=== PATIENT | male | born 1945 | race Caucasian/White ===

== ENCOUNTER 2017-01-25 10:21 | Emergency (ER) | payer MEDICARE, OTHER ==
[~2017-01-25] VITALS: Ht 182.9 cm; Wt 64.0 kg
[~2017-01-25 10:21] MED LIST: ATOR10 PO; LISI-363 PO; METO50TA PO; PLAV75TA PO; PROS5TAB2 PO; TAMS0.4C67 PO
[2017-01-25 10:27] VITALS: BP 151/88; PULSE 71; RESP 18; TEMP 98.1; O2SAT 98
[2017-01-25] MEDS ORDERED: LISI40TA PO (11:06)
[2017-01-25] MEDS ORDERED: METO25TA3 PO (11:06)
[2017-01-25] MEDS ORDERED: FINA5TAB2 PO (11:06)
[2017-01-25] MEDS ORDERED: ATOR10TA15 PO (11:06)
[2017-01-25] MEDS ORDERED: TAMS5CAP PO (11:06)
--- NOTE | 2017-01-25 11:11 | PD ---
HPI . Right wrist edema since Monday Chief Complaint: Edema Time Seen by Provider: 11:11 Travel History International Travel<30 days: No Contact w/Intl Traveler<30days: No Traveled to known affect area: No History of Present Illness HPI 71-year-old male with history of hypertension, CAD with stent placement, hyperlipidemia, COPD and BPH here with complaints of right wrist pain and some swelling. Patient says he was working in his yard using a pitch fork and thinks he may have hurt his wrist. He has full range of motion of the joints, but has some tenderness and mild swelling at the distal aspect. He denies any fall or trauma to the area. He is accompanied by his . PFSH Past Medical History Hx Anticoagulant Therapy: Yes Cardiovascular Problems: Yes ([place] TIMES 3 , HTN) High Cholesterol: Yes Cerebrovascular Accident: Yes (TIA) Diabetes: No Diminished Hearing: No Genitourinary: Yes (ENLARGED PROSTATE DIFFICULTY URINATING) Hypertension: Yes Musculoskeletal: No Neurologic: No Reproductive: No Respiratory: No Influenza Vaccination: No Past Surgical History Abdominal Surgery: No Cardiac Surgery: Yes (STENTING X3) Coronary Stent: Yes (3) Ear Surgery: No Endocrine Surgery: No Eye Surgery: No Genitourinary Surgery: No Gynecologic Surgery: No Oral Surgery: No Thoracic Surgery: No Other Surgery: Yes Social History Alcohol Use: Yes (4-5 BEERS DAILY) Tobacco Use: Yes (1 PPD) Substance Use: No Allergies-Medications (Allergen,Severity, Reaction): Coded Allergies: No Known Allergies (Unverified , 01/25/17) Reported Meds & Prescriptions Reported Meds & Active Scripts Active Ibuprofen 800 Mg Tab 800 Mg PO TID Reported Finasteride 5 Mg Tab 5 Mg PO DAILY Do not crush. Flomax (Tamsulosin HCl) 0.4 Mg Cap 0.4 Mg PO HS Metoprolol Tartrate 25 Mg Tab 12.5 Mg PO DAILY Lisinopril 40 Mg Tab 40 Mg PO DAILY Atorvastatin (Atorvastatin Calcium) 10 Mg Tab 10 Mg PO HS Review of Systems General / Constitutional: No: Fever Eyes: No: Visual changes HENT: No: Headaches Cardiovascular: No: Chest Pain or Discomfort Respiratory: No: Shortness of Breath Gastrointestinal: No: Abdominal Pain Genitourinary: No: Dysuria Musculoskeletal: Positive: Pain (right wrist pain) Skin: No Rash Neurologic: No: Weakness Psychiatric: No: Depression Endocrine: No: Polydipsia Hematologic/Lymphatic: No: Easy Bruising Physical Exam Narrative GENERAL: AAO x 3, no acute distress, Well-nourished, well-developed patient. SKIN: Warm and dry. No visible rashes or bruising. minimal edema to right distal wrist HEAD: Normocephalic and atraumatic. EYES: No scleral icterus. No injection or drainage. ENT: No nasal drainage noted. Mucous membranes pink. Airway patent. NECK: Supple, trachea midline. No JVD. CARDIOVASCULAR: Regular rate and rhythm without murmurs, gallops, or rubs. RESPIRATORY: Breath sounds equal bilaterally. No accessory muscle use. No rhonchi or rales. GASTROINTESTINAL: Abdomen soft, non-tender, nondistended. EXTREMITIES: No cyanosis or edema. mild edema to right distal wrist, motion is normal, no point tenderness, positive Ammy on the right wrist BACK: Nontender without obvious deformity. No CVA tenderness. PSYCH: AAO x 3, normal affect. Data Data Last Documented VS Vital Signs Date Time Temp Pulse Resp B/P Pulse Ox O2 Delivery O2 Flow Rate FiO2 01/25/17 10:27 98.1 71 18 151/88 98 Orders ^ Roberto Bandage (01/25/17 11:16) MDM Medical Decision Making Medical Screen Exam Complete: Yes Emergency Medical Condition: Yes Medical Record Reviewed: Yes Differential Diagnosis Tendinitis, de Quervain's tenosynovitis, less likely wrist fracture, less likely wrist sprain Narrative Course 71-year-old male with history of hypertension, CAD with stent placement, hyperlipidemia, COPD and BPH here with complaints of right wrist pain and some swelling. Patient says he was working in his yard using a pitch fork and thinks he may have hurt his wrist. He has full range of motion of the joints, but has some tenderness and mild swelling at the distal aspect. He denies any fall or trauma to the area. He is accompanied by his . Patient seen and examined. He does not have any significant findings other than some mild edema and a positive Ammy to the right wrist. I do not recommend any imaging. Discussed with him that this is likely due to overuse when working in his yard. Advise rest and NSAIDs. Roberto wrap provided for support. Patient verbalized understanding of instructions, questions were answered, and thanked me for their care. I advised them if their condition worsens, please return to the nearest emergency room for further care. Diagnosis Primary Impression: Tenosynovitis, wrist Patient Instructions: General Instructions Additional Instructions: Rest the affected area as much as possible. Ice this area for 15-20 minutes at a time. You can do this every hour or as much as tolerated. Keep this area compressed (roberto bandage) as tolerated. Elevate this area. Use ibuprofen as needed for pain and inflammation. Please return to emergency department if your symptoms return or worsen. Follow up with your primary care provider. Take medications as prescribed. Med/Other Pt SpecificInfo: Prescription(s) given Scripts Ibuprofen 800 Mg [id number] Mg PO TID #15 TAB Prov:Juan Camacho MD 01/25/17 Disposition: 01 DISCHARGE HOME Condition: Stable Kymberly العراقي Jan 25, 2017 11:11 Kymberly العراقي Jan 25, 2017 11:11
[2017-01-25] MEDS ORDERED: IBUP800T23 PO (11:17)
== END 2017-01-25 11:29 | disposition home or self-care (01) ==
LOC: PHED 10:21
DX: M65.9 Synovitis and tenosynovitis, unspecified (principal); F17.210 Nicotine dependence, cigarettes, uncomplicated; I10 Essential (primary) hypertension; E78.5 Hyperlipidemia, unspecified; I25.10 Atherosclerotic heart disease of native coronary artery without angina pectoris; J44.9 Chronic obstructive pulmonary disease, unspecified; E78.00 Pure hypercholesterolemia, unspecified; I25.2 Old myocardial infarction; Z86.73 Personal history of transient ischemic attack (TIA), and cerebral infarction without residual deficits; Z79.01 Long term (current) use of anticoagulants
CPT/HCPCS: 99283

== ENCOUNTER 2018-03-17 20:41 | Inpatient (IN) | payer OTHER, MEDICARE ==
[~2018-03-17] VITALS: Ht 182.9 cm; Wt 87.5 kg
[2018-03-17] MEDS: SODIUM CHLOR 0.9% 1000 ML INJ 1,000 ML IV SCH (00:57)
[~2018-03-17 20:41] MED LIST changes: -ATOR10 PO; +ATOR10TA15 PO; +FINA5TAB2 PO; +IBUP1TAB7 PO; -LISI-363 PO; +LISI40TA PO; +METO25TA3 PO; -METO50TA PO; -PLAV75TA PO; -PROS5TAB2 PO; -TAMS0.4C67 PO; +TAMS5CAP PO
[2018-03-17 20:42] VITALS: BP 229/106; PULSE 73; RESP 18; O2SAT 97
[2018-03-17] MEDS ORDERED: SODIUM CHLORIDE 0.9% FLUSH 10 ML FLUSH IVF PRN (20:45)
[2018-03-17 20:47] VITALS: BP 205/102; PULSE 68; RESP 18; O2SAT 98
[2018-03-17] MEDS ORDERED: CLOP75TA PO (20:56)
--- NOTE | 2018-03-17 21:07 | RADRPT ---
EXAM DATE/TIME: 03/17/2018 20:54 [facility] COMPARISON: No previous studies available for comparison. INDICATIONS : Left sided weakness. RADIATION DOSE: 56.35 CTDIvol (mGy) MEDICAL HISTORY : Cerebrovascular disease. Myocardial infarction. Cardiovascular diseaseHypertension. SURGICAL HISTORY : Non-responsive. Cardiac stent. ENCOUNTER: Initial ACUITY: 1 day PAIN SCALE: 2/10 LOCATION: cranial TECHNIQUE: Multiple contiguous axial images were obtained of the head. Using automated exposure control and adj ustment of the mA and/or kV according to patient size, radiation dose was kept as low as reasonably a chievable to obtain optimal diagnostic quality images. DICOM format image data is available electro nically for review and comparison. FINDINGS: CEREBRUM: The ventricles are normal for age. Bilateral cortical atrophy and chronic white matter changes. There is some decreased density in both basal ganglias, right greater than left suggestive of old infarcts . No evidence of midline shift, mass lesion, hemorrhage or acute infarction. No extra-axial fluid co llections are seen. POSTERIOR FOSSA: The cerebellum and brainstem are intact. The 4th ventricle is midline. The cerebellopontine angle i s unremarkable. EXTRACRANIAL: The visualized portion of the orbits is intact. SKULL: The calvaria is intact. No evidence of skull fracture. CONCLUSION: 1. No acute intracranial hemorrhage. 2. Low density areas in both basal ganglia areas suggestive of bilateral old infarcts. Rc Singer MD on March 17, 2018 at 21:02 Board Certified Radiologist. This report was verified electronically.
--- NOTE | 2018-03-17 21:11 | PD ---
HPI Chief Complaint: Left-sided weakness Time Seen by Provider: 20:43 Travel History International Travel<30 days: No Contact w/Intl Traveler<30days: No History of Present Illness HPI 72-year-old male patient with previous history of stroke on the right side, presents to the ER today because he is having left arm and leg weakness that started today at around 1:30 PM. He states that he was putting it off but his told him to come in. He denies any headache, trouble speaking, or other symptoms. He states that he feels the same as when he had his stroke on the right side. Modifying Factors: None Associated Signs & Symptoms: Left-sided weakness Risk Factors: previous stroke PFSH Past Medical History Hx Anticoagulant Therapy: Yes Cardiovascular Problems: Yes ([place] TIMES 3 , HTN) High Cholesterol: Yes Cerebrovascular Accident: Yes (TIA) Diabetes: No Diminished Hearing: No Genitourinary: Yes (ENLARGED PROSTATE DIFFICULTY URINATING) Hypertension: Yes Musculoskeletal: No Neurologic: No Reproductive: No Respiratory: No Past Surgical History Abdominal Surgery: No Cardiac Surgery: Yes (STENTING X3) Coronary Stent: Yes (3) Ear Surgery: No Endocrine Surgery: No Eye Surgery: No Genitourinary Surgery: No Gynecologic Surgery: No Oral Surgery: No Thoracic Surgery: No Other Surgery: Yes Social History Alcohol Use: Yes (4-5 BEERS DAILY) Tobacco Use: Yes (1 PPD) Substance Use: No Allergies-Medications (Allergen,Severity, Reaction): Coded Allergies: No Known Allergies (Unverified , 01/25/17) Reported Meds & Prescriptions Reported Meds & Active Scripts Active Reported Clopidogrel (Clopidogrel Bisulfate) 75 Mg Tab 75 Mg PO DAILY Finasteride 5 Mg Tab 5 Mg PO DAILY Do not crush. Flomax (Tamsulosin HCl) 0.4 Mg Cap 0.4 Mg PO HS Metoprolol Tartrate 25 Mg Tab 12.5 Mg PO DAILY Lisinopril 40 Mg Tab 40 Mg PO DAILY Atorvastatin (Atorvastatin Calcium) 10 Mg Tab 10 Mg PO HS Review of Systems Except as stated in HPI: all other systems reviewed are Neg Physical Exam Narrative GENERAL: Well-developed elderly white male patient currently in mild distress. Awake and oriented 3. SKIN: Focused skin assessment warm/dry. HEAD: Atraumatic. Normocephalic. EYES: Pupils equal and round. No scleral icterus. No injection or drainage. ENT: No nasal bleeding or discharge. Mucous membranes pink and moist. NECK: Trachea midline. No JVD. Supple. CARDIOVASCULAR: Regular rate and rhythm. No murmur appreciated. RESPIRATORY: No accessory muscle use. Clear to auscultation. Breath sounds equal bilaterally. GASTROINTESTINAL: Abdomen soft, non-tender, nondistended. Hepatic and splenic margins not palpable. MUSCULOSKELETAL: No obvious deformities. No clubbing. No cyanosis. No edema. NEUROLOGICAL: Awake and alert. Facial asymmetry, left facial droop, mild left leg weakness. Normal speech. I do not see an obvious pronator drift. PSYCHIATRIC: Appropriate mood and affect; insight and judgment normal. Data Data Last Documented VS Vital Signs Date Time Temp Pulse Resp B/P (MAP) Pulse Ox O2 Delivery O2 Flow Rate FiO2 03/17/18 20:47 68 18 205/102 (136) 98 Room Air Orders Orders Electrocardiogram (03/17/18 20:43) Prothrombin Time / Inr (Pt) (03/17/18 20:43) Act Partial Throm Time (Ptt) (03/17/18 20:43) Complete Blood Count With Diff (03/17/18 20:43) Comprehensive Metabolic Panel (03/17/18 20:43) Ct Brain W/O Iv Contrast(Rout) (03/17/18 20:43) Ecg Monitoring (03/17/18 20:43) Iv Access Insert/Monitor (03/17/18 20:43) Oximetry (03/17/18 20:43) Sodium Chloride 0.9% Flush (Ns Flush) (03/17/18 20:45) Aspirin (Aspirin) (03/17/18 21:45) Clonidine (Catapres) (03/17/18 21:45) Admit Order (Ed Use Only) (03/17/18 22:07) Labs Laboratory Tests Test 03/17/18 20:50 White Blood Count 6.5 TH/MM3 Red Blood Count 4.96 MIL/MM3 Hemoglobin 14.9 GM/DL Hematocrit 43.6 % Mean Corpuscular Volume 87.8 FL Mean Corpuscular Hemoglobin 30.1 PG Mean Corpuscular Hemoglobin Concent 34.3 % Red Cell Distribution Width 13.7 % Platelet Count 286 TH/MM3 Mean Platelet Volume 8.0 FL Neutrophils (%) (Auto) 52.8 % Lymphocytes (%) (Auto) 30.9 % Monocytes (%) (Auto) 9.8 % Eosinophils (%) (Auto) 5.3 % Basophils (%) (Auto) 1.2 % Neutrophils # (Auto) 3.4 TH/MM3 Lymphocytes # (Auto) 2.0 TH/MM3 Monocytes # (Auto) 0.6 TH/MM3 Eosinophils # (Auto) 0.3 TH/MM3 Basophils # (Auto) 0.1 TH/MM3 CBC Comment DIFF FINAL Differential Comment Prothrombin Time 9.6 SEC Prothromb Time International Ratio 0.9 RATIO Activated Partial Thromboplast Time 28.2 SEC Blood Urea Nitrogen 7 MG/DL Creatinine 0.93 MG/DL Random Glucose 71 MG/DL Total Protein 7.7 GM/DL Albumin 4.0 GM/DL Calcium Level 8.7 MG/DL Alkaline Phosphatase 68 U/L Aspartate Amino Transf (AST/SGOT) 23 U/L Alanine Aminotransferase (ALT/SGPT) 20 U/L Total Bilirubin 0.4 MG/DL Sodium Level 132 MEQ/L Potassium Level 4.1 MEQ/L Chloride Level 96 MEQ/L Carbon Dioxide Level 28.2 MEQ/L Anion Gap 8 MEQ/L Estimat Glomerular Filtration Rate 80 ML/MIN [facility] Medical Decision Making Medical Screen Exam Complete: Yes Emergency Medical Condition: Yes Medical Record Reviewed: Yes Interpretation(s) EKG shows NSR, no ST elevation or depression, and no arrhythmias. No significant T-wave inversions. Laboratory Tests Test 03/17/18 20:50 Monocytes (%) (Auto) 9.8 % (0.0-8.0) Eosinophils (%) (Auto) 5.3 % (0.0-4.0) Prothrombin Time 9.6 SEC (9.8-11.6) Random Glucose 71 MG/DL (74-106) Sodium Level 132 MEQ/L (136-145) Chloride Level 96 MEQ/L (98-107) Estimat Glomerular Filtration Rate 80 ML/MIN (>89) Last [address] 03/17/182042 Signed Impressions: Service Date/Time: Monday, March 17, 2018 20:54 - CONCLUSION: 1. No acute intracranial hemorrhage. 2. Low density areas in both basal ganglia areas suggestive of bilateral old infarcts. Rc Singer MD Differential Diagnosis Left-sided weakness, facial droop: CVA versus other acute intracranial processes Narrative Course Patient started having symptoms at 1:30 PM and at this point would not be a TPA candidate. CAT scan did not show any signs of acute intracranial processes. His blood pressure was quite high. He was given aspirin and clonidine in the ER. The rest of the lab work was unremarkable. EKG did not show any signs of acute changes. At this point, my plan would be to admit him for CVA. Case was discussed with Dr. Bryant for admission. Diagnosis Primary Impression: CVA (cerebral vascular accident) Additional Impression: Hypertension Admitting Information Admitting Physician Requests: it Cory Elder MD March 17, 2018 20:46
[2018-03-17 21:29] LABS: AUTOMATED NEUTROPHIL # 3.4 TH/MM3 (1.8-7.7); BASOPHIL # 0.1 TH/MM3 (0-0.2); BASOPHIL % 1.2 % (0.0-2.0); EOSINOPHIL # 0.3 TH/MM3 (0-0.4); EOSINOPHIL % 5.3 % (0.0-4.0); HEMATOCRIT 43.6 % (39.0-51.0); HEMOGLOBIN 14.9 GM/DL (13.0-17.0); LYMPH % 30.9 % (9.0-44.0); MEAN CELL VOLUME 87.8 FL (80.0-100.0); MEAN CORPUSCULAR HEMOGLOBIN 30.1 PG (27.0-34.0); MEAN CORPUSCULAR HGB CONC 34.3 % (32.0-36.0); MONO % 9.8 % (0.0-8.0); MONOCYTE # 0.6 TH/MM3 (0-0.9); NEUT % 52.8 % (16.0-70.0); PLATELET COUNT 286 TH/MM3 (150-450); RED BLOOD COUNT 4.96 MIL/MM3 (4.50-5.90); RED CELL DISTRIBUTION WIDTH 13.7 % (11.6-17.2); WHITE BLOOD COUNT 6.5 TH/MM3 (4.0-11.0)
[2018-03-17 21:33] LABS: INTERNATIONAL NORMALIZED RATIO 0.9 RATIO; PROTHROMBIN TIME - PATIENT 9.6 SEC (9.8-11.6)
[2018-03-17] MEDS ORDERED: cloNIDine HCL 0.2 MG TAB PO ONE (21:45)
[2018-03-17] MEDS ORDERED: ASPIRIN 325 MG TAB PO ONE (21:45)
[2018-03-17 21:57] LABS: AST (GOT) 23 U/L (15-37); BICARBONATE 28.2 MEQ/L (21.0-32.0); BLOOD UREA NITROGEN 7 MG/DL (7-18); CALCIUM 8.7 MG/DL (8.5-10.1); CHLORIDE 96 MEQ/L (98-107); CREATININE 0.93 MG/DL (0.60-1.30); GLOMERULAR FILTRATION RATE 80 ML/MIN (>89); GLUCOSE,RANDOM 71 MG/DL (74-106); SODIUM (NA) 132 MEQ/L (136-145)
[2018-03-17 22:01] LABS: ALKALINE PHOSPHATASE 68 U/L (45-117); ALT (GPT) 20 U/L (12-78); TOTAL BILIRUBIN ADULT 0.4 MG/DL (0.2-1.0); TOTAL PROTEIN 7.7 GM/DL (6.4-8.2)
[2018-03-17 22:08] VITALS: BP 179/96; PULSE 72; RESP 18; O2SAT 97
--- NOTE | 2018-03-17 22:13 | HHI.HP ---
[facility] Service [place] [facility] Primary Care Physician Unknown Admission Diagnosis CVA/hypertension Diagnoses: (1) CVA (cerebral vascular accident) Diagnosis: Principal (2) HTN (hypertension) Diagnosis: Principal (3) Tobacco abuse Diagnosis: Principal (4) Alcohol use Diagnosis: Principal Travel History International Travel<30 Days: No Contact w/Intl Traveler <30 Da: No Traveled to Known Affected Are: No History of Present Illness This is a 72-year-old male with a PMH of HTN, Hyperlipidemia, h/o CVA, Tobacco Abuse and Alcohol Use who was brought to the ER for stroke-like symptoms starting at approx 13:30. Pt states he was sitting in his recliner this afternoon watching TV, when he got up he felt his left leg go numb, thought it would go away. Shortly afterwards states he was walking to his shed to put away his tools when he had gait instability, fell to left side. No head trauma or LOC. Denies LUE weakness/numbness, no facial droop/slurred speech. On arrival, BP 229/106, HR 73, O2 sat 97% RA. CBC unremarkable. Chemistry essentially unremarkable. INR 0.9. 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 Review of Systems Except as stated in HPI: all other systems reviewed are Neg ROS: 14 point review of systems otherwise negative. Past Family Social History Past Medical History PMH: HTN, Hyperlipidemia, h/o CVA, Tobacco Abuse and Alcohol Use Past Surgical History PAST SURGICAL HISTORY: Cardiac Stent Allergies: Coded Allergies: No Known Allergies (Unverified Allergy, Unknown, 03/17/18) Family History PAST FAMILY HISTORY: Reviewed. No h/o DM or CAD Social History PAST SOCIAL HISTORY: Drinks 4-5 beers daily. Smokes 1ppd. Negative for drugs. Physical Exam Vital Signs Vital Signs Date Time Temp Pulse Resp B/P (MAP) Pulse Ox O2 Delivery O2 Flow Rate FiO2 03/17/18 22:08 72 18 179/96 (123) 97 Room Air 03/17/18 20:47 68 18 205/102 (136) 98 Room Air 03/17/18 20:42 73 18 229/106 (612) 62 Physical Exam PE: GENERAL: Pleasant elderly white male in no acute distress. HEENT: PERRLA, EOMI. No scleral icterus or conjunctival pallor. No lid lag, old facial droop. CARDIOVASCULAR: Regular rate and rhythm. No obvious murmurs to auscultation. No chest tenderness to palpation. RESPIRATORY: No obvious rhonchi or wheezing. Clear to auscultation. Breath sounds equal bilaterally. GASTROINTESTINAL: Abdomen soft, non-tender, nondistended. BS normal. MUSCULOSKELETAL: Extremities without clubbing, cyanosis, or edema. No obvious deformities. NEUROLOGICAL: Awake, alert and oriented x4. No focal neurologic deficits. Moving both upper and lower extremities spontaneously. Laboratory Laboratory Tests Test 03/17/18 20:50 White Blood Count 6.5 Red Blood Count 4.96 Hemoglobin 14.9 Hematocrit 43.6 Mean Corpuscular Volume 87.8 Mean Corpuscular Hemoglobin 30.1 Mean Corpuscular Hemoglobin Concent 34.3 Red Cell Distribution Width 13.7 Platelet Count 286 Mean Platelet Volume 8.0 Neutrophils (%) (Auto) 52.8 Lymphocytes (%) (Auto) 30.9 Monocytes (%) (Auto) 9.8 Eosinophils (%) (Auto) 5.3 Basophils (%) (Auto) 1.2 Neutrophils # (Auto) 3.4 Lymphocytes # (Auto) 2.0 Monocytes # (Auto) 0.6 Eosinophils # (Auto) 0.3 Basophils # (Auto) 0.1 CBC Comment DIFF FINAL Differential Comment Prothrombin Time 9.6 Prothromb Time International Ratio 0.9 Activated Partial Thromboplast Time 28.2 Blood Urea Nitrogen 7 Creatinine 0.93 Random Glucose 71 Total Protein 7.7 Albumin 4.0 Calcium Level 8.7 Alkaline Phosphatase 68 Aspartate Amino Transf (AST/SGOT) 23 Alanine Aminotransferase (ALT/SGPT) 20 Total Bilirubin 0.4 Sodium Level 132 Potassium Level 4.1 Chloride Level 96 Carbon Dioxide Level 28.2 Anion Gap 8 Estimat Glomerular Filtration Rate 80 Result Diagram: 03/17/18204903/17/182049 Caprini VTE Risk Assessment Caprini VTE Risk Assessment: No/Low Risk (score <= 1) Caprini Risk Assessment Model Point Value = 1 Point Value = 2 Point Value = 3 Point Value = 5 Age 41-60 Minor surgery BMI > 25 kg/m2 Swollen legs Varicose veins or History of unexplained or recurrent spontaneous Oral contraceptives or hormone replacement Sepsis (< 1 month) Serious lung disease, including pneumonia (< 1 month) Abnormal pulmonary function Acute myocardial infarction Congestive heart failure (< 1 month) History of inflammatory bowel disease Medical patient at bed rest Age 61-74 Arthroscopic surgery Major open surgery (> 45 min) Laparoscopic surgery (> 45 min) Malignancy Confined to bed (> 72 hours) Immobilizing plaster cast Central venous access Age >= 75 History of VTE Family history of VTE Factor V Leiden Prothrombin [id number] Lupus anticoagulant Anticardiolipin antibodies Elevated serum homocysteine Heparin-induced thrombocytopenia Other congenital or acquired thrombophilia Stroke (< 1 month) Elective arthroplasty Hip, pelvis, or leg fracture Acute spinal cord injury (< 1 month) Prophylaxis Regimen Total Risk Factor Score Risk Level Prophylaxis Regimen 0-1 Low Early ambulation 2 Moderate Order ONE of the following: *Sequential Compression Device (SCD) *Heparin 5000 units SQ BID 3-4 Higher Order ONE of the following medications: *Heparin 5000 units SQ TID *Enoxaparin/Lovenox 40 mg SQ daily (WT < 150 kg, CrCl > 30 mL/min) *Enoxaparin/Lovenox 30 mg SQ daily (WT < 150 kg, CrCl > 10-29 mL/min) *Enoxaparin/Lovenox 30 mg SQ BID (WT < 150 kg, CrCl > 30 mL/min) AND/OR *Sequential Compression Device (SCD) 5 or more Highest Order ONE of the following medications: *Heparin 5000 units SQ TID (Preferred with Epidurals) *Enoxaparin/Lovenox 40 mg SQ daily (WT < 150 kg, CrCl > 30 mL/min) *Enoxaparin/Lovenox 30 mg SQ daily (WT < 150 kg, CrCl > 10-29 mL/min) *Enoxaparin/Lovenox 30 mg SQ BID (WT < 150 kg, CrCl > 30 mL/min) AND *Sequential Compression Device (SCD) Assessment and Plan Problem List: (1) CVA (cerebral vascular accident) ICD Code: I63.9 - Cerebral infarction, unspecified Status: Acute (2) HTN (hypertension) ICD Code: I10 - Essential (primary) hypertension (3) Tobacco abuse ICD Code: Z72.0 - Tobacco use (4) Alcohol use ICD Code: Z78.9 - Other specified health status Assessment and Plan A/P: 1. CVA: H/o CVA 5yrs ago w/ extensive right-sided deficits, since resolved, now w/ c/o left-sided weakness and gait instability w/ falling to left side. No slurred speech or new facial droop. CT Head w/ no acute findings, bilateral old infarcts, images reviewed by me. NPO, IVF, HOB flat, Neuro Cheks, Check Lipid Profile/Hgb A1c, Check MRI/MRA to eval for underlying stroke, Check Echo to eval for embolic event. Consult PT for efraín/tx, Consult Neurology for further evaluation/recommendations. ASA, Statin. 2. HTN: Uncontrolled, BP 220's on arrival, s/p Clonidine w/ repeat BP 150's, will avoid further antihypertensives in light of acute CVA, prn meds for BP > 220 systolic. Monitor BP. 3. Tobacco Abuse: Pt counselled. Ativan prn, no NicoDerm to avoid vasoconstriction. 4. Alcohol Use: Drinks daily, 4-5 beers, denies withdrawal symptoms but high risk, Seizure Precautions, CIWA, MVT/Thiamine/Folate replacement. 5. DVT Prophylaxis: SCD/Teds 6. Social work for d/c planning as needed. 7. Case discussed w/ ER physician at length, labs/records/imaging reviewed by me. Physician Certification 2 Midnight Certification Type: Admission for Inpatient Services Order for Inpatient Services The services are ordered in accordance with Medicare regulations or non- Medicare payer requirements, as applicable. In the case of services not specified as inpatient-only, they are appropriately provided as inpatient services in accordance with the 2-midnight benchmark. Estimated LOS (days): 2 days is the estimated time the patient will need to remain in the hospital, assuming treatment plan goals are met and no additional complications. Post-Hospital Plan: Not yet determined Radha Bryant MD March 17, 2018 22:13
[2018-03-17] MEDS ORDERED: MAGNESIUM HYDROXIDE SUSP 30 ML CUP PO PRN (22:15)
[2018-03-17] MEDS ORDERED: SODIUM CHLORIDE 0.9% FLUSH 10 ML FLUSH IV FLUSH PRN ×2 (22:15)
[2018-03-17] MEDS ORDERED: GLUCAGON 1 MG/ML VIAL OTHER PRN (22:15)
[2018-03-17] MEDS ORDERED: METOCLOPRAMIDE HCL 10 MG/2 ML VIAL IV PUSH PRN (22:15)
[2018-03-17] MEDS ORDERED: DEXTROSE 50% IN WATER 50 ML VIAL(D50) IV PUSH PRN (22:15)
[2018-03-17] MEDS ORDERED: ACETAMINOPHEN 325 MG TAB PO PRN (22:15)
[2018-03-17] MEDS ORDERED: ENALAPRILAT 1.25 MG/ML VIAL IV PUSH PRN (22:15)
[2018-03-17] MEDS ORDERED: SENNOSIDES 8.6 MG TAB PO PRN (22:15)
[2018-03-17] MEDS ORDERED: ACETAMINOPHEN/HYDROcodone 325 MG/5 MG TAB PO PRN (22:15)
[2018-03-17] MEDS ORDERED: BISACODYL 10 MG SUPP RECTAL PRN (22:15)
[2018-03-17] MEDS ORDERED: ACETAMINOPHEN/HYDROcodone 325 MG/10 MG TAB PO PRN (22:15)
[2018-03-17] MEDS ORDERED: LACTULOSE SYRUP 20 GM/30 ML CUP PO PRN (22:15)
[2018-03-17 22:23] VITALS: O2SAT 97
[2018-03-17] MEDS ORDERED: HALOPERIDOL LACTATE 5 MG/ML AMP IM PRN (23:15)
[2018-03-17] MEDS ORDERED: FLUMAZENIL 0.5 MG/5 ML VIAL IV PUSH PRN (23:15)
[2018-03-17] MEDS ORDERED: LORazepam 2 MG TAB PO PRN (23:15)
[2018-03-17] MEDS ORDERED: LORazepam 2 MG/ML VIAL IV PUSH PRN ×4 (23:15)
[2018-03-17] MEDS ORDERED: LORazepam 1 MG TAB PO PRN (23:15)
[2018-03-18] VITALS (9 sets, daily range): BP systolic 148–208; BP diastolic 88–97; PULSE 62–82; RESP 17–20; TEMP 97.7–98; O2SAT 96–98
[2018-03-18 06:09] LABS: BASOPHIL # 0.1 TH/MM3 (0-0.2); BASOPHIL % 1.3 % (0.0-2.0); EOSINOPHIL # 0.3 TH/MM3 (0-0.4); EOSINOPHIL % 4.3 % (0.0-4.0); HEMATOCRIT 41.1 % (39.0-51.0); LYMPH % 24.4 % (9.0-44.0); LYMPHOCYTE # 1.6 TH/MM3 (1.0-4.8); MEAN CELL VOLUME 88.1 FL (80.0-100.0); MONO % 10.5 % (0.0-8.0); MONOCYTE # 0.7 TH/MM3 (0-0.9); NEUT % 59.5 % (16.0-70.0); PLATELET COUNT 264 TH/MM3 (150-450); RED BLOOD COUNT 4.66 MIL/MM3 (4.50-5.90); RED CELL DISTRIBUTION WIDTH 13.8 % (11.6-17.2); WHITE BLOOD COUNT 6.7 TH/MM3 (4.0-11.0)
[2018-03-18 06:36] LABS: ALBUMIN 3.2 GM/DL (3.4-5.0); ALKALINE PHOSPHATASE 58 U/L (45-117); ALT (GPT) 18 U/L (12-78); AST (GOT) 19 U/L (15-37); BICARBONATE 25.9 MEQ/L (21.0-32.0); BLOOD UREA NITROGEN 9 MG/DL (7-18); CALCIUM 7.9 MG/DL (8.5-10.1); CHLORIDE 99 MEQ/L (98-107); CHOLESTEROL 164 MG/DL (120-200); CHOLESTEROL/ HDL RATIO 1.93 RATIO; CREATININE 0.75 MG/DL (0.60-1.30); GLOMERULAR FILTRATION RATE 103 ML/MIN (>89); GLUCOSE,RANDOM 62 MG/DL (74-106); HDL CHOLESTEROL 84.7 MG/DL (40.0-60.0); LDL CHOLESTEROL 61 MG/DL (0-99); SODIUM (NA) 134 MEQ/L (136-145); TOTAL BILIRUBIN ADULT 0.6 MG/DL (0.2-1.0); TOTAL PROTEIN 6.6 GM/DL (6.4-8.2); TRIGLYCERIDES 93 MG/DL (42-150)
[2018-03-18] MEDS: INSULIN ASPART SUPPLEMENTAL SCALE SQ SCH ×4 (08:00→21:18)
--- NOTE | 2018-03-18 08:11 | RADRPT ---
EXAM DATE/TIME: 03/18/2018 07:42 [facility] COMPARISON: CT BRAIN W/O CONTRAST, March 17, 2018, 20:54. INDICATIONS : CVA. Left side weakness. MEDICAL HISTORY : Cerebrovascular disease. Cardiovascular disease Hypertension. SURGICAL HISTORY : Stent. ENCOUNTER: Initial ACUITY: 2 day PAIN SCORE: 0/10 LOCATION: cranial TECHNIQUE: Multiplanar, multisequence MRI of the brain was performed without contrast. FINDINGS: CEREBRUM: The ventricles are normal for age. No evidence of midline shift, mass lesion, hemorrhage or acute in farction. No extraaxial fluid collections are seen. The pituitary gland and suprasellar cistern are normal in configuration. WHITE MATTER: Scattered periventricular white matter areas of increased T2 signal are present. POSTERIOR FOSSA: The cerebellum and brainstem are intact. The 4th ventricle is midline. The cerebellopontine angle is unremarkable. The cerebellar tonsils are normal in position. DIFFUSION IMAGING: There is a focal 5 mm area of restricted diffusion involving the right thalamus EXTRACRANIAL: The visualized portions of the orbits and paranasal sinuses are unremarkable. CONCLUSION: Focal area of restricted diffusion involving the right pelvis consistent with an acute infarct.. Angélica Welsh MD on March 18, 2018 at 8:05 Board Certified Radiologist. This report was verified electronically.
--- NOTE | 2018-03-18 08:27 | RADRPT ---
EXAM DATE/TIME: 03/18/2018 07:42 [facility] COMPARISON: MRI BRAIN W/O CONTRAST, March 18, 2018, 7:42. INDICATIONS : CVA. Left side weakness. MEDICAL HISTORY : Cardiovascular disease Cerebrovascular disease. Hypertension. SURGICAL HISTORY : Stent. ENCOUNTER: Initial ACUITY: 2 day PAIN SCORE: 0/10 LOCATION: cranial Please note a normal MRA of the brain does not entirely exclude the possibility of a small aneurysm, nor the possibility of distal intracranial vessel disease. TECHNIQUE: 3D time of flight MRA was performed. Source images, multiplanar STS MIP, and 3D volume MIP reconstru ctions were reviewed. FINDINGS: There is excellent visualization of the major intracranial arteries out to the second-order branch ve ssels. There is no evidence for aneurysm, vessel truncation or stenosis, and no evidence for vascula r malformation. There is tortuosity of the basilar artery with areas of mild atherosclerosis identifi ed within the basilar artery and lateral internal carotid arteries. CONCLUSION: Mild atherosclerosis without evidence of significant stenosis, vessel truncation or aneurysm.. Angélica Welsh MD on March 18, 2018 at 8:21 Board Certified Radiologist. This report was verified electronically.
--- NOTE | 2018-03-18 08:38 | HHI.PR ---
Subjective Remarks in no acute distress. says that his left leg ' still feels heavy' but has improved compared to yesterday. Objective Vitals Vital Signs Date Time Temp Pulse Resp B/P (MAP) Pulse Ox O2 Delivery O2 Flow Rate FiO2 03/18/18 07:59 97.8 62 20 180/88 (118) 97 03/18/18 04:43 62 03/18/18 04:00 98.0 66 17 176/89 (118) 97 03/18/18 00:45 97.7 63 18 169/91 (117) 98 03/17/18 22:23 97 03/17/18 22:08 72 18 179/96 (123) 97 Room Air 03/17/18 20:47 68 18 205/102 (136) 98 Room Air 03/17/18 20:42 73 18 229/106 (147) 97 I/O 03/17/18 03/17/18 03/17/18 03/18/18 03/18/18 03/18/18 07:00 15:00 23:00 07:00 15:00 23:00 Output Total 600 ml Balance -600 ml Output Urine Total 600 ml Result Diagram: 03/18/18 0532 03/18/18 0532 Imaging Last Impressions Brain MRI 03/18/18 0000 Signed Impressions: Service Date/Time: Sunday, March 18, 2018 07:42 - CONCLUSION: Focal area of restricted diffusion involving the right pelvis consistent with an acute infarct.. Angélica Welsh MD Head CT 03/17/182042 Signed Impressions: Service Date/Time: Saturday, March 17, 2018 20:54 - CONCLUSION: 1. No acute intracranial hemorrhage. 2. Low density areas in both basal ganglia areas suggestive of bilateral old infarcts. Rc Singer MD Objective Remarks GENERAL: This is a well-nourished, well-developed patient, in no apparent distress. CARDIOVASCULAR: Regular rate and regular rhythm without murmurs, gallops, or rubs. RESPIRATORY: Clear to auscultation. Breath sounds equal bilaterally. No wheezes , rales, or rhonchi. GASTROINTESTINAL: Abdomen soft, non-tender, nondistended. Normal, active bowel sounds MUSCULOSKELETAL: Extremities without clubbing, cyanosis, or edema. NEURO: Alert & Oriented x4 to person, place, time, situation. Moves all ext x4 Medications and IVs Inpatient Medications Acetaminophen (Tylenol) 650 mg Q6H PRN PO FEVER/PAIN SCALE 1 TO 2; Start at 22:15 Acetaminophen/ Hydrocodone Bitart ([place] 5-325 Mg) 1 tab Q4H PRN PO PAIN SCALE 3 TO 5; Start 03/17/18 at 22:15 Acetaminophen/ Hydrocodone Bitart ([place] 10-325 Mg) 1 tab Q4H PRN PO PAIN SCALE 6 TO 10; Start 03/17/18 at 22:15 Aspirin (Aspirin Chew) 81 mg DAILY PO ; Start 03/18/18 at 09:00 Aspirin (Aspirin) 325 mg ONCE ONCE PO Last administered on 03/17/18at 22:10; Start 03/17/18 at 21:45; Stop 03/17/18 at 21:46; Status DC Bisacodyl (Dulcolax Supp) 10 mg DAILY PRN RECTAL SEVERE CONSITIPATION; Start at 22:15 Clonidine (Catapres) 0.2 mg ONCE ONCE PO Last administered on 03/17/18at 22:10 ; Start 03/17/18 at 21:45; Stop 03/17/18 at 21:46; Status DC Dextrose (D50w (Vial) Inj) 50 ml UNSCH PRN IV PUSH HYPOGLYCEMIA-SEE COMMENTS; Start 03/17/18 at 22:15 Enalaprilat (Vasotec Inj) 1.25 mg Q4H PRN IV PUSH For SBP > 220 or DBP > 120; Start 03/17/18 at 22:15 Flumazenil (Romazicon Inj) 0.2 mg Q1M PRN IV PUSH SEE LABEL COMMENTS; Start 10/23 at 23:15 Folic Acid (Folate) 1 mg DAILY PO ; Start 03/18/18 at 09:00; Stop 03/23/18 at 08 :59 Glucagon (Glucagon Inj) 1 mg UNSCH PRN OTHER HYPOGLYCEMIA-SEE COMMENTS; Start 03/17/18 at 22:15 Haloperidol Lactate (Haldol Inj) 2 mg Q15M PRN IM SEE LABEL COMMENTS; Start 10/23 at 23:15 Insulin Aspart (NovoLOG SUPPLEMENTAL SCALE) 1 ACHS SQ ; Start 03/18/18 at 08:00 Lactulose (Lactulose Liq) 30 ml DAILY PRN PO SEVERE CONSITIPATION; Start at 22:15 Lorazepam (Ativan Inj) 2 mg Q15M PRN IV PUSH CIWA > 20; Start 03/17/18 at 23:15 Lorazepam (Ativan) 2 mg Q2H PRN PO CIWA 11-14; Start 03/17/18 at 23:15 Magnesium Hydroxide (Milk Of Magnesia Liq) 30 ml Q12H PRN PO Mild constipation ; Start 03/17/18 at 22:15 Metoclopramide HCl (Reglan Inj) 5 mg Q6H PRN IV PUSH NAUSEA OR VOMITING; Start 03/17/18 at 22:15 Multivitamins/ Minerals Therapeutic (Theragran M Tab) 1 tab DAILY PO ; Start at 09:00; Stop 03/23/18 at 08:59 Pravastatin Sodium (Pravachol) 40 mg HS PO ; Start 03/18/18 at 21:00 Senna/Docusate Sodium (Lucia-Colace) 1 tab BID PO ; Start 03/18/18 at 09:00 Sennosides (Senokot) 17.2 mg Q12H PRN PO Moderate constipation; Start 03/17/18 at 22:15 Sodium Chloride (NS Flush) 2 ml BID IV FLUSH ; Start 03/18/18 at 09:00 Thiamine HCl (Vitamin B1) 100 mg DAILY PO ; Start 03/18/18 at 09:00 A/P Problem List: (1) CVA (cerebral vascular accident) ICD Code: I63.9 - Cerebral infarction, unspecified Status: Acute (2) HTN (hypertension) ICD Code: I10 - Essential (primary) hypertension (3) Tobacco abuse ICD Code: Z72.0 - Tobacco use (4) Alcohol use ICD Code: Z78.9 - Other specified health status Assessment and Plan A/P 1. acute CVA continue aspirin and statin- echo pending- check carotid doppler- neurology consulted. awaiting PT evaluation. 2. HTN: Uncontrolled, BP 220's on arrival, s/p Clonidine w/ repeat BP 150's, will avoid further antihypertensives in light of acute CVA, prn meds for BP > 220 systolic. Monitor BP. 3. Tobacco Abuse: Pt counselled. Ativan prn, no NicoDerm to avoid vasoconstriction. 4. Alcohol Use: Drinks daily, 4-5 beers, denies withdrawal symptoms but high risk, Seizure Precautions, CIWA, MVT/Thiamine/Folate replacement. 5. DVT Prophylaxis: SCD/Teds Discharge Planning awaiting neurology evaluation/ work-up. Francis Silver MD March 18, 2018 08:38
[2018-03-18] MEDS: SODIUM CHLORIDE 0.9% FLUSH 10 ML FLUSH IV FLUSH SCH ×4 (09:00→21:18)
[2018-03-18] MEDS: DOCUSATE SODIUM 50 MG/SENNA 8.6 MG TAB PO SCH ×2 (09:00→21:17)
--- NOTE | 2018-03-18 09:58 | RADRPT ---
EXAM DATE/TIME: 03/18/2018 09:07 [facility] COMPARISON: MRI BRAIN W/O CONTRAST, March 18, 2018, 7:42. [facility], US Carotid Arteries, May 11, 2015 INDICATIONS : Cerebrovascular accident. MEDICAL HISTORY : Cerebrovascular disease. Myocardial infarction. Hypertension. Cerebrovascular accident. Enlarged pro state. Hypercholesterolemia. Anticoagulant therapy. SURGICAL HISTORY : Coronary stent. Right shoulder surgery. ENCOUNTER: Initial ACUITY: 1 day PAIN SCORE: 0/10 LOCATION: Bilateral neck PEAK SYSTOLIC VELOCITIES (cm/sec): ICA/CCA RATIO: Right: 1.0 Left: 0.9 ICA: Right: 66 Left: 75 CCA: Right: 68 Left: 85 ECA: Right: 50 Left: 61 VERTEBRAL: Right: 36 antegrade Left: 39 antegrade Elevated flow velocities and ICA/CCA ratios have been found to correlate with increased degrees of vessel stenosis, calculated as percentage of diameter relative to a normal segment of distal ICA/CCA FINDINGS: RIGHT CAROTID: No significant stenosis is visualized. There is mild calcified and noncalcified plaque identified wi thin the carotid bulb. The waveforms are within normal limits. LEFT CAROTID: No significant stenosis is visualized. There are scattered areas of calcified plaque identified with in the region of the carotid bulb and within the proximal left internal carotid artery. The waveforms are within normal limits. VERTEBRAL ARTERIES: Antegrade flow is seen in both vertebral arteries. MISCELLANEOUS: None. CONCLUSION: Mild atherosclerosis bilaterally with area of noncalcified plaque identified in the region of the rig ht carotid bulb. No significant stenosis is identified. Angélica Welsh MD on March 18, 2018 at 9:53 Board Certified Radiologist. This report was verified electronically.
[2018-03-18] MEDS: ASPIRIN 81 MG CHEW TAB PO SCH (10:05)
[2018-03-18] MEDS: MULTIVITAMINS/MINERALS THERAPEUTIC TAB PO SCH (10:05)
[2018-03-18] MEDS: FOLIC ACID 1 MG TAB PO SCH (10:05)
[2018-03-18] MEDS: THIAMINE HCL 100 MG TAB PO SCH (10:05)
--- NOTE | 2018-03-18 11:57 | MB ---
cc: Sosa Brice MD DATE: 03/18/2018 REASON FOR CONSULTATION Left-sided weakness, stroke. HISTORY OF PRESENT ILLNESS: This is a 72-year-old man with a history of hypertension, hyperlipidemia, tobacco abuse, alcohol use, history of stroke in the past, comes in with left-sided weakness that started about 1:30. Stated that he was resting, watching TV when he felt his left leg go numb, thought it would go away, went to his shed to put some tools away and was unstable, fell to the left, came in with accelerated hypertension and admitted for evaluation. Apparently, he was not in the window for tPA; hence, no stroke alert was called. PAST MEDICAL HISTORY As stated. FAMILY HISTORY: Noncontributory. SOCIAL HISTORY: He drinks 4-5 beers a day, smokes a pack a day. HOME MEDICINES: He states he takes a blood thinner for his heart. I named all the blood thinners on the market, and he was not sure if it was Pradaxa or not, but looking at his chart, he is on, per chart, Plavix, finasteride, Flomax, metoprolol, lisinopril, atorvastatin, so I am thinking he is on Plavix not Pradaxa. PHYSICAL EXAMINATION: VITAL SIGNS: Temperature is 97.8, pulse 62, respiratory rate 20, blood pressure 180/88, sating at 97%, room air. NECK: Supple. No appreciable bruits. HEART: Regular. NEUROLOGIC: He is awake, alert. He is oriented, fluent. Pupils reactive. Face symmetrical. Tongue midline. Motor sousa, no significant drift. Upper extremity strength is intact. He does have a left leg lag. Toes upgoing on the left. Cerebellar is normal. DTRs are 1+. Sensory normal. Gait is withheld. LABORATORY DATA: Labs were reviewed. His CBC is unremarkable. Coag panel is unremarkable. Sodium was 132 yesterday, 134 today. Glucose 62, calcium 7.9. Hemoglobin A1c is pending. LDL 61, cholesterol 164, triglycerides 93, HDL 84.7. IMAGING: Carotid ultrasound, no significant stenosis. MRA, some arthrosclerosis, no significant stenosis. MRI of the brain shows a right hemispheric small infarct, acute. IMPRESSION: Small right-sided infarct with history of hypertension, hyperlipidemia, tobacco abuse. PLAN: Recommend continuing his Plavix. Add a baby aspirin. He should continue on both for at least 3 months. Thiamine, folic acid, check his hemoglobin A1c. He is already on pravastatin. Continue that. PT, OT evaluation, possible rehab evaluation if needed, have him assessed. DVT prevention with subcutaneous heparin and/or Lovenox, SCDs, and a 2-D echo workup is unremarkable. Discharge planning. MD DANIELLA Stanford/AMAURY , 11:29 AM , 11:57 AM
[2018-03-18 12:24] LABS: HEMOGLOBIN A1C 5.2 % (4.3-6.0)
[2018-03-18] MEDS: SODIUM CHLOR 0.9% 1000 ML INJ 1,000 ML IV SCH (12:27)
--- NOTE | 2018-03-18 17:22 | EKG ---
Date Performed: 03/17/2018 Time Performed: 20:46:14 PTAGE: 72 years EKG: Sinus rhythm INCOMPLETE RIGHT BUNDLE BRANCH BLOCK BORDERLINE ECG PREVIOUS TRACING : 08/09/2013 18.39 Since the previous tracing, no significant change noted DOCTOR: Edwin Lopez Interpretating Date/Time 03/18/2018 17:20:36
[2018-03-18] MEDS: PRAVASTATIN SOD 40 MG TAB PO SCH (21:17)
[2018-03-19] VITALS (13 sets, daily range): BP systolic 142–194; BP diastolic 78–94; PULSE 56–89; RESP 17–21; TEMP 97–97.7; O2SAT 97–100
[2018-03-19] MEDS: SODIUM CHLOR 0.9% 1000 ML INJ 1,000 ML IV SCH ×2 (05:01→17:20)
--- NOTE | 2018-03-19 08:46 | HHI.PR ---
Subjective Remarks in no acute distress. weakness of the left leg has much improved. no new complaints. Objective Vitals Vital Signs Date Time Temp Pulse Resp B/P (MAP) Pulse Ox O2 Delivery O2 Flow Rate FiO2 03/19/18 05:04 97.7 73 20 177/90 (119) 98 03/19/18 01:48 60 03/19/18 01:04 56 03/19/18 00:20 97.0 66 20 175/94 (121) 99 03/18/18 21:45 66 03/18/18 21:21 96 03/18/18 20:08 97.9 82 20 148/91 (110) 97 03/18/18 16:18 97.9 65 20 208/97 (134) 98 03/18/18 12:21 97.7 65 20 176/92 (120) 97 I/O 03/18/18 03/18/18 03/18/18 03/19/18 03/19/18 03/19/18 07:00 15:00 23:00 07:00 15:00 23:00 Output Total 600 ml 1250 ml Balance -600 ml -1250 ml Output Urine Total 600 ml 1250 ml # Voids 3 # Bowel Movements 1 Result Diagram: 03/18/18 0532 03/18/18 0532 Imaging Last Impressions Head Magnetic Resonance Angiography 03/18/18 0000 Signed Impressions: Service Date/Time: Sunday, March 18, 2018 07:42 - CONCLUSION: Mild atherosclerosis without evidence of significant stenosis, vessel truncation or aneurysm.. Angélica Welsh MD Carotid Artery Ultrasound 03/18/18 0000 Signed Impressions: Service Date/Time: Sunday, March 18, 2018 09:07 - CONCLUSION: Mild atherosclerosis bilaterally with area of noncalcified plaque identified in the region of the right carotid bulb. No significant stenosis is identified. Angélica Welsh MD Brain MRI 03/18/18 0000 Signed Impressions: Service Date/Time: Sunday, March 18, 2018 07:42 - CONCLUSION: Focal area of restricted diffusion involving the right pelvis consistent with an acute infarct.. Angélica Welsh MD Head CT 03/17/182042 Signed Impressions: Service Date/Time: Saturday, March 17, 2018 20:54 - CONCLUSION: 1. No acute intracranial hemorrhage. 2. Low density areas in both basal ganglia areas suggestive of bilateral old infarcts. Rc Singer MD Objective Remarks GENERAL: This is a well-nourished, well-developed patient, in no apparent distress. CARDIOVASCULAR: Regular rate and regular rhythm without murmurs, gallops, or rubs. RESPIRATORY: Clear to auscultation. Breath sounds equal bilaterally. No wheezes , rales, or rhonchi. GASTROINTESTINAL: Abdomen soft, non-tender, nondistended. Normal, active bowel sounds MUSCULOSKELETAL: Extremities without clubbing, cyanosis, or edema. NEURO: Alert & Oriented x4 to person, place, time, situation. Moves all ext x4 Medications and IVs Inpatient Medications Acetaminophen (Tylenol) 650 mg Q6H PRN PO FEVER/PAIN SCALE 1 TO 2; Start at 22:15 Acetaminophen/ Hydrocodone Bitart ([place] 5-325 Mg) 1 tab Q4H PRN PO PAIN SCALE 3 TO 5; Start 03/17/18 at 22:15 Acetaminophen/ Hydrocodone Bitart ([place] 10-325 Mg) 1 tab Q4H PRN PO PAIN SCALE 6 TO 10; Start 03/17/18 at 22:15 Aspirin (Aspirin Chew) 81 mg DAILY PO Last administered on 03/18/18at 10:05; Start 03/18/18 at 09:00 Aspirin (Aspirin) 325 mg ONCE ONCE PO Last administered on 03/17/18at 22:10; Start 03/17/18 at 21:45; Stop 03/17/18 at 21:46; Status DC Bisacodyl (Dulcolax Supp) 10 mg DAILY PRN RECTAL SEVERE CONSITIPATION; Start at 22:15 Clonidine (Catapres) 0.2 mg ONCE ONCE PO Last administered on 03/17/18at 22:10 ; Start 03/17/18 at 21:45; Stop 03/17/18 at 21:46; Status DC Dextrose (D50w (Vial) Inj) 50 ml UNSCH PRN IV PUSH HYPOGLYCEMIA-SEE COMMENTS; Start 03/17/18 at 22:15 Enalaprilat (Vasotec Inj) 1.25 mg Q4H PRN IV PUSH For SBP > 220 or DBP > 120; Start 03/17/18 at 22:15 Flumazenil (Romazicon Inj) 0.2 mg Q1M PRN IV PUSH SEE LABEL COMMENTS; Start 10/23 at 23:15 Folic Acid (Folate) 1 mg DAILY PO Last administered on 03/18/18at 10:05; Start 03/18/18 at 09:00; Stop 03/23/18 at 08:59 Glucagon (Glucagon Inj) 1 mg UNSCH PRN OTHER HYPOGLYCEMIA-SEE COMMENTS; Start 03/17/18 at 22:15 Haloperidol Lactate (Haldol Inj) 2 mg Q15M PRN IM SEE LABEL COMMENTS; Start 10/23 at 23:15 Insulin Aspart (NovoLOG SUPPLEMENTAL SCALE) 1 ACHS SQ ; Start 03/18/18 at 08:00 Lactulose (Lactulose Liq) 30 ml DAILY PRN PO SEVERE CONSITIPATION; Start at 22:15 Lorazepam (Ativan Inj) 2 mg Q15M PRN IV PUSH CIWA > 20; Start 03/17/18 at 23:15 Lorazepam (Ativan) 2 mg Q2H PRN PO CIWA 11-14; Start 03/17/18 at 23:15 Magnesium Hydroxide (Milk Of Magnesia Liq) 30 ml Q12H PRN PO Mild constipation ; Start 03/17/18 at 22:15 Metoclopramide HCl (Reglan Inj) 5 mg Q6H PRN IV PUSH NAUSEA OR VOMITING; Start 03/17/18 at 22:15 Multivitamins/ Minerals Therapeutic (Theragran M Tab) 1 tab DAILY PO Last administered on 03/18/18at 10:05; Start 03/18/18 at 09:00; Stop 03/23/18 at 08:59 Pravastatin Sodium (Pravachol) 40 mg HS PO Last administered on 03/18/18at 21:17 ; Start 03/18/18 at 21:00 Senna/Docusate Sodium (Lucia-Colace) 1 tab BID PO Last administered on at 21:17; Start 03/18/18 at 09:00 Sennosides (Senokot) 17.2 mg Q12H PRN PO Moderate constipation; Start 03/17/18 at 22:15 Sodium Chloride (NS Flush) 2 ml BID IV FLUSH Last administered on 03/18/18at 21: 18; Start 03/18/18 at 09:00 Thiamine HCl (Vitamin B1) 100 mg DAILY PO Last administered on 03/18/18at 10:05 ; Start 03/18/18 at 09:00 A/P Problem List: (1) CVA (cerebral vascular accident) ICD Code: I63.9 - Cerebral infarction, unspecified Status: Acute (2) HTN (hypertension) ICD Code: I10 - Essential (primary) hypertension (3) Tobacco abuse ICD Code: Z72.0 - Tobacco use (4) Alcohol use ICD Code: Z78.9 - Other specified health status Assessment and Plan A/P 1. acute CVA continue aspirin and statin- echo pending- neurology consult appreciated; continue aspirin, plavix and statin. 2. HTN: Uncontrolled, BP 220's on arrival, s/p Clonidine w/ repeat BP 150's, will avoid further antihypertensives in light of acute CVA, prn meds for BP > 220 systolic. Monitor BP. 3. Tobacco Abuse: Pt counselled. Ativan prn, no NicoDerm to avoid vasoconstriction. 4. Alcohol Use: Drinks daily, 4-5 beers, denies withdrawal symptoms but high risk, Seizure Precautions, CIWA, MVT/Thiamine/Folate replacement. 5. DVT Prophylaxis: SCD/Teds Discharge Planning dc home with C within the next 24 hrs- pending echo and BP trend. see med list. f/u; pcp and neurology. d/w the patient. Francis Silver MD March 19, 2018 08:46
--- NOTE | 2018-03-19 08:47 | HHI.FF ---
Face to Face Verification Diagnosis: (1) CVA (cerebral vascular accident) (2) Hypertension Physical Therapy Order: Evaluate and Treat Home Health Nursing Order: Medical education Signs/symptoms of disease process Medication education-adverse effect Nursing assessment with vital signs I have seen patient Holger Dumont on 03/19/18. My clinical findings support the need for the requested home health care services because: Ltd mobility - disease progression I certify that my clinical findings support that this patient is homebound because: Unsteady gait/balance Francis Silver MD March 19, 2018 08:47
[2018-03-19] MEDS ORDERED: ASPI81 PO (08:50)
[2018-03-19] MEDS ORDERED: LIPI40TA PO (08:50)
[2018-03-19] MEDS ORDERED: THERM PO (08:50)
[2018-03-19] MEDS ORDERED: LISI-515 PO (08:50)
[2018-03-19] MEDS: ASPIRIN 81 MG CHEW TAB PO SCH (08:55)
[2018-03-19] MEDS: DOCUSATE SODIUM 50 MG/SENNA 8.6 MG TAB PO SCH ×2 (08:55→20:40)
[2018-03-19] MEDS: MULTIVITAMINS/MINERALS THERAPEUTIC TAB PO SCH (08:55)
[2018-03-19] MEDS: FOLIC ACID 1 MG TAB PO SCH (08:55)
[2018-03-19] MEDS: THIAMINE HCL 100 MG TAB PO SCH (08:55)
[2018-03-19] MEDS: INSULIN ASPART SUPPLEMENTAL SCALE SQ SCH ×4 (08:55→20:39)
[2018-03-19] MEDS: SODIUM CHLORIDE 0.9% FLUSH 10 ML FLUSH IV FLUSH SCH ×4 (08:56→20:37)
[2018-03-19] MEDS: CLOPIDOGREL 75 MG TAB PO SCH (09:45)
[2018-03-19] MEDS ORDERED: WALKER GLIDE WH1 MI1 (10:54)
[2018-03-19] MEDS: LISINOPRIL 10 MG TAB PO SCH (12:07)
[2018-03-19] MEDS: PRAVASTATIN SOD 40 MG TAB PO SCH (20:37)
[2018-03-20] VITALS: PULSE 63
[2018-03-20 00:20] VITALS: BP 148/98; PULSE 69; RESP 17; TEMP 98.6; O2SAT 96
[2018-03-20 04:24] VITALS: PULSE 66
[2018-03-20 05:30] VITALS: BP 143/69; PULSE 63; RESP 19; TEMP 97.3; O2SAT 98
[2018-03-20] MEDS: SODIUM CHLOR 0.9% 1000 ML INJ 1,000 ML IV SCH (06:26)
[2018-03-20 08:00] VITALS: BP 167/90; PULSE 78; RESP 18; TEMP 97.3; O2SAT 97
[2018-03-20] MEDS: FOLIC ACID 1 MG TAB PO SCH (09:48)
[2018-03-20] MEDS: LISINOPRIL 10 MG TAB PO SCH (09:48)
[2018-03-20] MEDS: MULTIVITAMINS/MINERALS THERAPEUTIC TAB PO SCH (09:49)
[2018-03-20] MEDS: CLOPIDOGREL 75 MG TAB PO SCH (09:49)
[2018-03-20] MEDS: THIAMINE HCL 100 MG TAB PO SCH (09:49)
[2018-03-20] MEDS: INSULIN ASPART SUPPLEMENTAL SCALE SQ SCH (09:49)
[2018-03-20] MEDS: ASPIRIN 81 MG CHEW TAB PO SCH (09:49)
[2018-03-20] MEDS: DOCUSATE SODIUM 50 MG/SENNA 8.6 MG TAB PO SCH (09:49)
[2018-03-20] MEDS: SODIUM CHLORIDE 0.9% FLUSH 10 ML FLUSH IV FLUSH SCH ×2 (09:49)
--- NOTE | 2018-03-20 10:21 | HHI.PR ---
Subjective Remarks in no acute distress. worked with PT earlier. no new complaints. BP overall better. Objective Vitals Vital Signs Date Time Temp Pulse Resp B/P (MAP) Pulse Ox O2 Delivery O2 Flow Rate FiO2 03/20/18 05:30 97.3 63 19 143/69 (93) 98 03/20/18 04:24 66 03/20/18 00:20 98.6 69 17 148/98 (115) 96 03/20/18 00:00 63 03/19/18 20:46 97.3 60 20 172/82 (112) 100 03/19/18 20:00 67 03/19/18 16:36 97.7 67 21 142/78 (99) 98 03/19/18 16:00 64 03/19/18 12:27 97.5 69 18 194/93 (126) 97 03/19/18 12:00 89 I/O 03/19/18 03/19/18 03/19/18 03/20/18 03/20/18 03/20/18 07:00 15:00 23:00 07:00 15:00 23:00 Intake Total 800 ml 900 ml Output Total 1250 ml 500 ml 1200 ml Balance -1250 ml 300 ml -300 ml Intake Oral 800 ml 900 ml Output Urine Total 1250 ml 500 ml 1200 ml # Voids 3 # Bowel Movements 0 0 Result Diagram: 03/18/18 0532 03/18/18 0532 Imaging Last Impressions Head Magnetic Resonance Angiography 03/18/18 0000 Signed Impressions: Service Date/Time: Sunday, March 18, 2018 07:42 - CONCLUSION: Mild atherosclerosis without evidence of significant stenosis, vessel truncation or aneurysm.. Angélica Welsh MD Carotid Artery Ultrasound 03/18/18 0000 Signed Impressions: Service Date/Time: Sunday, March 18, 2018 09:07 - CONCLUSION: Mild atherosclerosis bilaterally with area of noncalcified plaque identified in the region of the right carotid bulb. No significant stenosis is identified. Angélica Welsh MD Brain MRI 03/18/18 0000 Signed Impressions: Service Date/Time: Sunday, March 18, 2018 07:42 - CONCLUSION: Focal area of restricted diffusion involving the right pelvis consistent with an acute infarct.. Angélica Welsh MD Head CT 03/17/182042 Signed Impressions: Service Date/Time: Saturday, March 17, 2018 20:54 - CONCLUSION: 1. No acute intracranial hemorrhage. 2. Low density areas in both basal ganglia areas suggestive of bilateral old infarcts. Rc Singer MD Objective Remarks GENERAL: This is a well-nourished, well-developed patient, in no apparent distress. CARDIOVASCULAR: Regular rate and regular rhythm without murmurs, gallops, or rubs. RESPIRATORY: Clear to auscultation. Breath sounds equal bilaterally. No wheezes , rales, or rhonchi. GASTROINTESTINAL: Abdomen soft, non-tender, nondistended. Normal, active bowel sounds MUSCULOSKELETAL: Extremities without clubbing, cyanosis, or edema. NEURO: Alert & Oriented x4 to person, place, time, situation. Moves all ext x4 Medications and IVs Inpatient Medications Acetaminophen (Tylenol) 650 mg Q6H PRN PO FEVER/PAIN SCALE 1 TO 2; Start at 22:15 Acetaminophen/ Hydrocodone Bitart ([place] 5-325 Mg) 1 tab Q4H PRN PO PAIN SCALE 3 TO 5; Start 03/17/18 at 22:15 Acetaminophen/ Hydrocodone Bitart ([place] 10-325 Mg) 1 tab Q4H PRN PO PAIN SCALE 6 TO 10; Start 03/17/18 at 22:15 Aspirin (Aspirin Chew) 81 mg DAILY PO Last administered on 03/20/18at 09:49; Start 03/18/18 at 09:00 Aspirin (Aspirin) 325 mg ONCE ONCE PO Last administered on 03/17/18at 22:10; Start 03/17/18 at 21:45; Stop 03/17/18 at 21:46; Status DC Bisacodyl (Dulcolax Supp) 10 mg DAILY PRN RECTAL SEVERE CONSITIPATION; Start at 22:15 Clonidine (Catapres) 0.2 mg ONCE ONCE PO Last administered on 03/17/18at 22:10 ; Start 03/17/18 at 21:45; Stop 03/17/18 at 21:46; Status DC Clopidogrel Bisulfate (Plavix) 75 mg DAILY PO Last administered on 03/20/18at 09 :49; Start 03/19/18 at 10:00 Dextrose (D50w (Vial) Inj) 50 ml UNSCH PRN IV PUSH HYPOGLYCEMIA-SEE COMMENTS; Start 03/17/18 at 22:15 Enalaprilat (Vasotec Inj) 1.25 mg Q4H PRN IV PUSH For SBP > 220 or DBP > 120; Start 03/17/18 at 22:15 Flumazenil (Romazicon Inj) 0.2 mg Q1M PRN IV PUSH SEE LABEL COMMENTS; Start 10/23 at 23:15 Folic Acid (Folate) 1 mg DAILY PO Last administered on 03/20/18at 09:48; Start 03/18/18 at 09:00; Stop 03/23/18 at 08:59 Glucagon (Glucagon Inj) 1 mg UNSCH PRN OTHER HYPOGLYCEMIA-SEE COMMENTS; Start 03/17/18 at 22:15 Haloperidol Lactate (Haldol Inj) 2 mg Q15M PRN IM SEE LABEL COMMENTS; Start 10/23 at 23:15 Insulin Aspart (NovoLOG SUPPLEMENTAL SCALE) 1 ACHS SQ ; Start 03/18/18 at 08:00 Lactulose (Lactulose Liq) 30 ml DAILY PRN PO SEVERE CONSITIPATION; Start at 22:15 Lisinopril (Prinivil) 10 mg DAILY PO Last administered on 03/20/18at 09:48; Start 03/19/18 at 10:45 Lorazepam (Ativan Inj) 2 mg Q15M PRN IV PUSH CIWA > 20; Start 03/17/18 at 23:15 Lorazepam (Ativan) 2 mg Q2H PRN PO CIWA 11-14; Start 03/17/18 at 23:15 Magnesium Hydroxide (Milk Of Magnesia Liq) 30 ml Q12H PRN PO Mild constipation ; Start 03/17/18 at 22:15 Metoclopramide HCl (Reglan Inj) 5 mg Q6H PRN IV PUSH NAUSEA OR VOMITING; Start 03/17/18 at 22:15 Multivitamins/ Minerals Therapeutic (Theragran M Tab) 1 tab DAILY PO Last administered on 03/20/18at 09:49; Start 03/18/18 at 09:00; Stop 03/23/18 at 08:59 Pravastatin Sodium (Pravachol) 40 mg HS PO Last administered on 03/19/18at 20:37 ; Start 03/18/18 at 21:00 Senna/Docusate Sodium (Lucia-Colace) 1 tab BID PO Last administered on at 20:40; Start 03/18/18 at 09:00 Sennosides (Senokot) 17.2 mg Q12H PRN PO Moderate constipation; Start 03/17/18 at 22:15 Sodium Chloride (NS Flush) 2 ml BID IV FLUSH Last administered on 03/20/18at 09: 49; Start 03/18/18 at 09:00 Thiamine HCl (Vitamin B1) 100 mg DAILY PO Last administered on 03/20/18at 09:49 ; Start 03/18/18 at 09:00 A/P Problem List: (1) CVA (cerebral vascular accident) ICD Code: I63.9 - Cerebral infarction, unspecified Status: Acute (2) HTN (hypertension) ICD Code: I10 - Essential (primary) hypertension (3) Tobacco abuse ICD Code: Z72.0 - Tobacco use (4) Alcohol use ICD Code: Z78.9 - Other specified health status Assessment and Plan A/P 1. acute CVA continue aspirin and statin- echo pending- neurology consult appreciated; continue aspirin, plavix and statin. 2. HTN: Uncontrolled-overall better controlled.continue lisinopril. 3. Tobacco Abuse: Pt counselled. Ativan prn, no NicoDerm to avoid vasoconstriction. 4. Alcohol Use: Drinks daily, 4-5 beers, denies withdrawal symptoms but high risk, Seizure Precautions, CIWA, MVT/Thiamine/Folate replacement. 5. DVT Prophylaxis: SCD/Teds Discharge Planning dc home with C today- pending echo. see med list. f/u; pcp and neurology. d/w the patient. Francis Silver MD March 20, 2018 10:20
--- NOTE | 2018-03-20 10:23 | HHI.DS ---
Discharge Summary Admission Date March 17, 2018 at 22:08 Discharge Date: March 20, 2018 Admitting Diagnosis CVA/hypertension (1) CVA (cerebral vascular accident) ICD Code: I63.9 - Cerebral infarction, unspecified Diagnosis: Principal Status: Acute (2) HTN (hypertension) ICD Code: I10 - Essential (primary) hypertension Diagnosis: Principal (3) Tobacco abuse ICD Code: Z72.0 - Tobacco use Diagnosis: Secondary (4) Alcohol use ICD Code: Z78.9 - Other specified health status Diagnosis: Secondary Procedures none Brief History - From Admission This is a 72-year-old male with a PMH of HTN, Hyperlipidemia, h/o CVA, Tobacco Abuse and Alcohol Use who was brought to the ER for stroke-like symptoms starting at approx 13:30. Pt states he was sitting in his recliner this afternoon watching TV, when he got up he felt his left leg go numb, thought it would go away. Shortly afterwards states he was walking to his shed to put away his tools when he had gait instability, fell to left side. No head trauma or LOC. Denies LUE weakness/numbness, no facial droop/slurred speech. On arrival, BP 229/106, HR 73, O2 sat 97% RA. CBC unremarkable. Chemistry essentially unremarkable. INR 0.9. 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 CBC/BMP: 03/18/18 0532 03/18/18 0532 Significant Findings Laboratory Tests Test 03/17/18 20:50 03/18/18 05:32 Monocytes (%) (Auto) 9.8 % (0.0-8.0) 10.5 % (0.0-8.0) Eosinophils (%) (Auto) 5.3 % (0.0-4.0) 4.3 % (0.0-4.0) Prothrombin Time 9.6 SEC (9.8-11.6) Random Glucose 71 MG/DL (74-106) 62 MG/DL (74-106) Sodium Level 132 MEQ/L (136-145) 134 MEQ/L (136-145) Chloride Level 96 MEQ/L (98-107) Estimat Glomerular Filtration Rate 80 ML/MIN (>89) Albumin 3.2 GM/DL (3.4-5.0) Calcium Level 7.9 MG/DL (8.5-10.1) HDL Cholesterol 84.7 MG/DL (40.0-60.0) PE at Discharge GENERAL: This is a well-nourished, well-developed patient, in no apparent distress. CARDIOVASCULAR: Regular rate and regular rhythm without murmurs, gallops, or rubs. RESPIRATORY: Clear to auscultation. Breath sounds equal bilaterally. No wheezes , rales, or rhonchi. GASTROINTESTINAL: Abdomen soft, non-tender, nondistended. Normal, active bowel sounds MUSCULOSKELETAL: Extremities without clubbing, cyanosis, or edema. NEURO: Alert & Oriented x4 to person, place, time, situation. Moves all ext x4 Hospital Course 1. acute CVA continue aspirin and statin- echo pending- neurology consult appreciated; continue aspirin, plavix and statin. 2. HTN: Uncontrolled-overall better controlled.continue lisinopril. 3. Tobacco Abuse: Pt counselled. Ativan prn, no NicoDerm to avoid vasoconstriction. 4. Alcohol Use: Drinks daily, 4-5 beers, denies withdrawal symptoms but high risk, Seizure Precautions, CIWA, MVT/Thiamine/Folate replacement. 5. DVT Prophylaxis: SCD/Teds Pt Condition on Discharge: Good Discharge Disposition: Disch w/ Home Health Serv Discharge Time: <= 30 minutes Discharge Instructions DIET: Follow Instructions for: Heart Healthy Diet Activities you can perform: Regular-No Restrictions Francis Silver MD March 20, 2018 10:23
--- NOTE | 2018-03-20 11:30 | ECHRPT ---
Indication: CVA CONCLUSIONS Normal left ventricular size. The left ventricular systolic function is normal with an estimated ejection fraction in the range of 55-60%. Mild aortic valve regurgitation. There is trace tricuspid valve regurgitation. The estimated pulmonary arterial pressure is 18 mmHg. BP: 178 / 92 HR: 68 Rhythm: Sinus MEASUREMENTS (Male / Female) Normal Values Technical Quality:Technically difficult study DOPPLER AV Peak Velocity 86.9 cm/s AV Peak Gradient 3.0 mmHg AV Mean Gradient 2.0 mmHg AV Velocity Time Integral 17.5 cm LVOT Peak Velocity 72.2 cm/s LVOT Peak Gradient 2.1 mmHg LVOT Velocity Time Integral 10.8 cm Mitral E Point Velocity 47.5 cm/s Mitral A Point Velocity 60.5 cm/s Mitral E to A Ratio 0.8 LV E' Lateral Velocity 4.9 cm/s Mitral E to LV E' Lateral Ratio 9.8 LV E' Septal Velocity 3.1 cm/s Mitral E to LV E' Septal Ratio 15.2 TR Peak Velocity 144.0 cm/s TR Peak Gradient 8.3 mmHg PV Peak Velocity 63.9 cm/s PV Peak Gradient 1.6 mmHg FINDINGS LEFT VENTRICLE Normal left ventricular size. The left ventricular systolic function is normal with an estimated ejection fraction in the range of 55-60%. RIGHT VENTRICLE Normal right ventricular size and systolic function. LEFT ATRIUM The left atrial size is normal. RIGHT ATRIUM The right atrial size is normal. ATRIAL SEPTUM No atrial level shunt is demonstrated by color flow Doppler interrogation. AORTA The aortic root and proximal ascending aorta are not well visualized. MITRAL VALVE Structurally normal mitral valve. No mitral valve stenosis or regurgitation. AORTIC VALVE Aortic valve sclerosis is present. Mild aortic valve regurgitation. TRICUSPID VALVE There is trace tricuspid valve regurgitation. The estimated pulmonary arterial pressure is 18 mmHg. PULMONARY VALVE No pulmonary valve regurgitation or stenosis. VESSELS The inferior vena cava is normal in size. PERICARDIUM No pericardial effusion. Juan Pathak MD, FACC (Electronically Signed) Final Date:20 Mar 2018 11:29
[2018-03-20 12:41] VITALS: BP 150/82; PULSE 73; RESP 18; TEMP 97.6; O2SAT 98
== END 2018-03-20 13:07 | disposition home health service (06) | DRG 66 ==
LOC: NEPC 20:41 → NEDA 22:08 → N05A 03-18 00:44
PROVIDERS: ADMIT Internal Medicine; ATTEND Internal Medicine
DX: I63.9 Cerebral infarction, unspecified (principal); R29.810 Facial weakness; G83.14 Monoplegia of lower limb affecting left nondominant side; I10 Essential (primary) hypertension; N40.0 Benign prostatic hyperplasia without lower urinary tract symptoms; E78.5 Hyperlipidemia, unspecified; I25.2 Old myocardial infarction; F17.210 Nicotine dependence, cigarettes, uncomplicated; Z86.73 Personal history of transient ischemic attack (TIA), and cerebral infarction without residual deficits; Z95.5 Presence of coronary angioplasty implant and graft
CPT/HCPCS: 70450; 70544; 70551; 80053; 80061; 82948; 83036; 85025; 85610; 85730; 93005; 93306; 93880; 96360; 96361; J7030